=== PATIENT | female | born 1960 | race Caucasian/White ===

== ENCOUNTER 2021-07-16 21:39 | Emergency (ER) | payer MEDICARE, MEDICAID | END 2021-07-16 22:53 | disposition home or self-care (01) | LOC: JP.ED 21:39 → EDBD 21:39 → JP.ED 22:53 | DX: F45.8 Other somatoform disorders (principal); F41.9 Anxiety disorder, unspecified; J44.9 Chronic obstructive pulmonary disease, unspecified; Z79.899 Other long term (current) drug therapy | CPT/HCPCS: 36600; 71046; 71046-26; 82803; 85025; 99282; 99284-25 ==